=== PATIENT | female | born 1975 ===

== ENCOUNTER → 2018-01-03 | Outpatient (CLI) | payer OTHER | END | disposition home or self-care (01) | LOC: MAMO-SONO 12-28 09:15 | DX: Z12.31 Encounter for screening mammogram for malignant neoplasm of breast (principal); N60.11 Diffuse cystic mastopathy of right breast; N60.12 Diffuse cystic mastopathy of left breast ==

== ENCOUNTER 2018-01-15 08:23 | Outpatient (CLI) | payer OTHER | END 2018-01-15 18:58 | disposition home or self-care (01) | LOC: LAB 08:23 | DX: I73.00 Raynaud's syndrome without gangrene (principal); R70.0 Elevated erythrocyte sedimentation rate; R76.0 Raised antibody titer ==

== ENCOUNTER 2018-01-15 10:49 | Outpatient (CLI) | payer OTHER | END 2018-01-15 14:27 | disposition home or self-care (01) | LOC: SONOGRAMA 10:49 | DX: R76.0 Raised antibody titer (principal); R70.0 Elevated erythrocyte sedimentation rate; I73.00 Raynaud's syndrome without gangrene ==

== ENCOUNTER 2018-11-12 10:57 | Emergency (ER) | payer OTHER ==
[~2018-11-12] VITALS: Ht 152.4 cm; Wt 72.6 kg
[2018-11-12] MEDS ORDERED: PLAQUNIL (11:29)
[2018-11-12] MEDS ORDERED: MATULANE50 MG (11:30)
[2018-11-12] MEDS ORDERED: ZANTAC300 MG (11:30)
== END 2018-11-12 14:23 | disposition home or self-care (01) ==
LOC: ER 10:57
DX: G51.0 Bell's palsy (principal)

== ENCOUNTER 2024-09-09 09:54 | Outpatient (CLI) | payer OTHER ==
[~2024-09-09 09:54] MED LIST: MATULANE50 MG; PLAQUNIL; ZANTAC300 MG
== END 2024-09-09 09:56 | disposition home or self-care (01) ==
LOC: SONOGRAMA 09:54
PROVIDERS: ATTEND Pathology Anatomic Pathology & Clinical Pathology
DX: D34 Benign neoplasm of thyroid gland (principal); E07.89 Other specified disorders of thyroid; E04.1 Nontoxic single thyroid nodule